=== PATIENT | female | born 1950 | race Caucasian/White ===

== ENCOUNTER 2018-10-15 05:28 | Inpatient (IN) ==
[2018-10-15] MEDS ORDERED: Chlorhexidine Gluconate 2% 1 Pack (2 Cloths) TOPICAL ONE (06:00)
[2018-10-15] MEDS ORDERED: Metoprolol Tartrate 25 MG Tablet PO ONE (06:00)
[2018-10-15] MEDS ORDERED: Sodium Chlor 0.9% Inj 500 ML IV.SIG SCH (06:00)
[2018-10-15] MEDS ORDERED: Chlorhexidine 4% Topical 120 APPLIC/120 ML Bottle TOPICAL SCH (06:15)
[2018-10-15] MEDS ORDERED: Bupivacaine/Dextrose 0.75% Inj 2 ML Ampul ONE (06:37)
[2018-10-15] MEDS ORDERED: Acetaminophen 325 MG Tablet PO PRN (06:53)
[2018-10-15] MEDS ORDERED: Zolpidem Tartrate 5 MG Tablet PO PRN (06:53)
[2018-10-15] MEDS ORDERED: Bisacodyl 10 MG Supp RECTAL PRN (06:53)
[2018-10-15] MEDS ORDERED: Post-op Orders (for Pharmacy) OTHER STA (06:53)
[2018-10-15] MEDS ORDERED: Aluminum/Magnesium/Simethacone Susp 30 ML UDC PO PRN (06:53)
--- NOTE | 2018-10-15 06:56 | P.DCO ---
- Physical Therapy Physical Therapy: Gait training Hip: Total hip, Protocol: Right, Posterior hip precautions, Progress to weight bearing Canvas Knee Splint: When in bed with 2 pillows between thighs Right Lower Extremity Weight Bearing: Weight bearing as tolerated Right Lower Extremity Range of Motion: Active ROM - Nursing Nursing: Dressing changes Dressing changes: Other Additional instructions: Do not remove Dermabond Prineo (the tape that is directly on the wound). Leave the Optifoam dressing in place for 7 days. After this, daily dressing changes will be done taking care to avoid injuring or removing the Dermabond Prineo. - Certification Need for Home Health services: I have seen patient Kacy Batista on 10/15/18. My clinical findings support the need for the requested home health care services because: Need for Home Health Services: Limited ability to care for self, High risk of falls Homebound Certification: I certify that my clinical findings support that this patient is homebound because: Homebound Certification: Post-op weakness, Unsteady gait/balance, Unsafe to leave home unassisted
[2018-10-15] MEDS ORDERED: Sodium Chlor 0.9% Inj 40 ML, Bupivacaine Liposo PF 1.3% Inj 20 ML P-ARTICULR SCH ×2 (07:00)
[2018-10-15] MEDS ORDERED: ceFAZolin 2 GM Premix Inj 2 GM/50 ML PIGGYBACK IV.SIG SCH (07:00)
[2018-10-15] MEDS ORDERED: Ketorolac Inj 30 MG/ML (IVP) Vial IV.PUSH SCH (07:00)
[2018-10-15] MEDS ORDERED: SODIUM CHLOR 0.9% IV.SIG SCH ×2 (07:00→10:00)
[2018-10-15] MEDS ORDERED: TRANEXAMIC ACID IV.SIG SCH ×2 (07:00→10:00)
[2018-10-15] MEDS ORDERED: TURMERIC 800 MG PO SCH (09:00)
--- NOTE | 2018-10-15 09:07 | P.OP ---
- Preoperative Diagnosis (1) Primary osteoarthritis of right hip - Postoperative Diagnosis (1) Primary osteoarthritis of right hip Date of procedure: 10/15/18 Procedure: Right total hip arthroplasty using Jose prosthesis. Anesthesia: local (With Exparel), spinal Surgeon: Shaun Harmon MD [employer] Shop Supervisor: MORENITA Yanez Estimated blood loss (mL): 250 Pathology: none sent Operation and Findings: Indications and Findings: This 68-year-old woman has a 2-1/2-year history of right hip pain progressively worsening and limit her and activities of daily living. She has not responded to conservative measures including analgesics, nonsteroidal anti-inflammatory agents, activity modification, exercise, ambulatory aids, physical therapy and chiropractic treatment. She complains of pain in the groin and lateral thigh as well as anterior upper thigh. She has more pain when bending and bearing weight on the right lower and pain when twisting and turning quickly. Her ambulation tolerance is markedly limited. Physical findings showed limited motion of the hip with an antalgic gait and tenderness on motion. X-rays and MRI showed significant arthritis in the hip with acetabular and femoral head subchondral cysts and irregularity in the joint surface. Operative findings: There was significant irregularity in the joint surface particularly in the anterior and superior acetabulum and superior femoral head with loss of articular cartilage and some eburnation. Implants: The acetabular component was a 48 mm external diameter Trident II cluster shell with a 36 mm inner diameter 0 degree X3 polyethylene liner. The femoral component was an Accolade II size 4 x 127 degrees. The femoral head was a Biolox Delta 36 mm outer diameter with -5 mm offset. The patient was brought to the clean air operating suite and a spinal anesthetic was administered. The patient was positioned into a lateral position with the operative hip up on a Next Generation Dance lateral positioner. The hip and lower extremity were prepped with alcohol, Hibiclens and ChloraPrep and draped in the usual manner with the hip draped free. Patient received prophylactic antibiotics preoperatively. The patient also received tranexamic acid preoperatively. An appropriate timeout procedure was carried out. An incision was made from the midportion of the greater trochanter proximally and posteriorly paralleling the fibers of the gluteus ramila. The incision was deepened through subcutaneous tissues down to the fascia joe and gluteus fascia. The gluteus fascia was then split longitudinally in line with its fibers up to the upper portion of the fascia joe. With wound towels in place, the Charnley retractor was inserted. The sciatic nerve was identified and protected throughout the procedure. Dissection was then carried down to the interval between the gluteus minimus and the piriformis. A retractor was inserted. The piriformis and obturator conjoined tendon was released from the greater trochanter and reflected off the capsule. A capsulotomy was made longitudinally along the femoral neck to the base of the femoral neck and then curved distally along the posterior aspect of the greater trochanter. The hip was internally rotated. Further release of the external rotators was carried out exposing the hip. The hip was dislocated. The femoral neck was transected at the appropriate level using the oscillating saw placement of appropriate retractors. The femoral head was removed. Preparation of the femur was initiated with a box osteotome followed by a curet to identify the medullary canal. Broaching was then initiated with the size 0 broach and went in 1 size increments up to size 4. The broach handle was removed. The femoral neck was then trimmed with a calcar planar. Attention was then directed to the acetabulum. Soft tissues were debrided from the acetabulum. Retractors were placed about the acetabulum. Reaming was then initiated with the 43 millimeter reamer and went in 1-2 mm increments up to the 47 millimeter diameter reamer. A trial reduction with the 48 millimeter trial prosthesis was carried out. When this was deemed to be appropriate, the trial prosthesis was removed. The acetabulum was irrigated and cleaned. The actual prosthesis as noted above was impacted into place and seated appropriately. Drill holes were made and sounded. Appropriate sized screws were inserted to stabilize the acetabulum further. The liner as noted above was inserted into the acetabular shell and impacted into place. Osteophytes were trimmed from the acetabulum. Local anesthetic was administered throughout the area of the acetabulum and anterior aspect of the femur. The trial neck was placed on the broach for the above-noted prosthesis. The femoral head trial was placed onto the femoral neck . A trial reduction was carried out. Adjustment was made as needed. The stability, leg length and motion were excellent. There was no pistoning. The trial prosthesis was removed. The broach was removed. The femoral component was impacted into the medullary canal of the femur after irrigation and suctioning. When this was appropriately seated a trial reduction was again carried out with the trial prosthesis. There was no pistoning. The leg length was appropriate. The stability and motion were excellent. The trial prosthesis was then removed. After cleaning and drying the trunion of the femoral component, the above-noted femoral head was impacted onto the trunnion. The hip was reduced. The stability and mobility were again checked along with leg lengths as noted above. The hip was positioned appropriately and closure commenced after the remainder of the local anesthetic was injected throughout the hip. The external rotators and capsule were repaired with #1 Vicryl interrupted transosseous sutures with a Krakw technique to reattach the external rotators and capsule to the posterior aspect of the greater trochanter. The capsule itself on the superior aspect was closed with #1 Vicryl interrupted [id number] sutures. The sciatic nerve was inspected. The fascia joe and gluteus fascia were repaired with #1 Vicryl interrupted [id number] sutures. The subcutaneous tissues were closed with 2-0 Vicryl interrupted simple sutures with buried knots. The skin was closed with a continuous subcuticular closure of 4-0 Monocryl. The wound was then approximated with Dermabond Prineo. A silver impregnated dressing was applied to the hip. A knee immobilizer was applied to the leg. The patient was transferred from the operating room to the recovery room in satisfactory condition having tolerated the procedure well. Counts are correct. Specimens: None. Estimated blood loss: 250 mL
[2018-10-15] MEDS ORDERED: fentaNYL Citrate Inj 100 MCG/2 ML Ampul ONE (09:31)
[2018-10-15] MEDS ORDERED: SODIUM CHLOR 0.9% IV.SIG ONE (10:00)
[2018-10-15] MEDS ORDERED: TRANEXAMIC ACID IV.SIG ONE (10:00)
--- NOTE | 2018-10-15 10:23 | XR ---
EXAM DATE: 10/15/2018 10:16 AM EST AGE/SEX: 68 years / Female INDICATIONS: Post op right hip surgery CLINICAL DATA: This is the patient's initial encounter. Patient reports that signs and symptoms have been present for 1 day and indicates a pain score of Nonresponsive. MEDICAL/SURGICAL HISTORY: None. None. COMPARISON: No prior exams available for comparison. FINDINGS: AP and crosstable lateral views the right hip were obtained and demonstrate the patient is status pos t right hip arthroplasty. The femoral and acetabular components are intact and in normal alignment. CONCLUSION: Expected postoperative changes status post right arthroplasty Electronically signed by: Malachi Lopez MD 10/15/2018 10:22 AM EST
[2018-10-15] MEDS: Calcium Carbonate 500 MG Tablet PO SCH (10:32)
[2018-10-15] MEDS: Senna/Docusate Sodium 8.6/50 MG Tablet PO SCH ×2 (10:33→21:37)
[2018-10-15] MEDS: Ketorolac Inj 30 MG/ML (IVP) Vial IV.PUSH SCH ×3 (10:34→21:37)
[2018-10-15] MEDS ORDERED: *Ondansetron Inj 4 MG/2 ML Vial PERIprocedural Use ONLY ONE (10:40)
[2018-10-15] MEDS ORDERED: *morphine SULFATE 10 MG/ML PERIprocedure ONLY ONE (13:06)
[2018-10-15] MEDS ORDERED: ceFAZolin 1 GM Premix Inj 1 GM/50 ML PIGGYBACK IV.SIG SCH (17:00)
--- NOTE | 2018-10-15 17:02 | P.CON ---
History of Present Illness Service: [facility] Consult date: 10/15/18 Requesting Physician: Shaun Harmon Reason for Consult: Medical management Primary Care Provider: Sri Perez MD Chief Complaint: Hip surgery History of Present Illness: 68-year-old female with past medical history significant for osteoarthritis, sleep apnea, polycythemia, and chronic UTIs admitted under orthopedic services for planned total right hip arthroplasty due to osteoarthritis. Patient is seen ambulating from the bathroom to her bed with the assistance of staff and a walker. She is examined resting in bed and appears to be in no acute distress. She reports some pain discomfort on the right hip at the moment after ambulating. Denies any nausea, vomiting, shortness of breath, cough, chest pain or dizziness. She voices no acute concerns or complaints at the moment. Review of Systems All other systems reviewed negative except as stated in [facility] - History History Provided By: Patient - Medical History Medical History: Medical History (Last Updated 10/15/18 @ 16:59 by Alisha Edge) Arthritis CPAP (continuous positive airway pressure) dependence Chronic UTI History of anesthesia reaction History of cystocele History of rectocele Polycythemia Sleep apnea Vaginal prolapse Wears glasses - Surgical History Surgical History: Surgical History (Last Reviewed 10/15/18 @ 17:15 by Alisha Edge) H/O dilation and curettage H/O hand surgery - Family History Family History: Family History (Last Updated 10/15/18 @ 17:01 by Alisha Edge) Mother Lung cancer Father Atrial fibrillation - Social History I have reviewed the patient's Social History: Yes - Tobacco History Second Hand Smoke Exposure: No Tobacco Use In Past 30 Days: No Smoking Status: Former smoker - Alcohol History How Often Do You Have a Drink Containing Alcohol: Monthly or less - Substance Use History Substance History: No History of Abuse - Travel History Recent Travel in the [place] Within the Last 8 Weeks: Yes Recent Travel Out of the Country Within the Last 8 Weeks: No - Immunization History Tetanus Immunization: <5 Years Hx Influenza Vaccine This Season: No Medications and Allergies Active Medications: Active Medications Acetaminophen (Tylenol) 650 mg PO Q6H PRN PRN Reason: Pain Less Than 3 On Scale Hydrocodone Bitart/Acetaminophen (Daisy 7.5/325) 1 tab PO Q4H PRN PRN Reason: PAIN SCALE 4 TO 6 MODERATE Hydrocodone Bitart/Acetaminophen (Daisy 7.5/325) 2 tab PO Q6H PRN PRN Reason: PAIN SCALE 7 TO 10 SEVERE Last Admin: 10/15/18 15:00 Dose: 2 tab Al Hydrox/Mg Hydrox/Simethicone (Mag-Al Plus Susp Liq) 30 ml PO Q6H PRN PRN Reason: INDIGESTION Al Hydroxide/Mg Hydroxide (Milk Of Magnesia Liq) 30 ml PO BID PRN PRN Reason: Mild Constipation Aspirin (Aspirin Chew) 81 mg PO BID [facility] Last Admin: 10/15/18 10:31 Dose: 81 mg Bisacodyl (Dulcolax Supp) 10 mg RECTAL DAILY PRN PRN Reason: SEVERE CONSITIPATION Calcium Carbonate (Oscal) 500 mg PO DAILY [facility] Last Admin: 10/15/18 10:32 Dose: 500 mg Chlorhexidine Gluconate (Hibiclens 4% Topical) 1 applicatio TOPICAL ONCE [facility] Stop: 10/19/18 06:14 Cyanocobalamin (Vitamin B12) 1,500 mcg PO DAILY [facility] Last Admin: 10/15/18 10:32 Dose: 1,500 mcg Diphenhydramine HCl (Benadryl) 25 mg PO Q6H PRN PRN Reason: ITCHING Lactated Ringer's (Lr 1000 Ml Inj) 1,000 mls @ 30 mls/hr IV.SIG .Q24H [facility] Stop: 10/16/18 05:59 Last Admin: 10/15/18 06:17 Dose: 30 mls/hr Sodium Chloride (Ns Inj) 500 mls @ 30 mls/hr IV.SIG .Q10H [facility] Last Admin: 10/15/18 06:50 Dose: Not Given Cefazolin Sodium/Dextrose (Ancef 2 Gm Premix Inj) 2 gm in 50 mls @ 100 mls/hr IV.SIG APPLICATIONS PROGRAMMER ANALYST [facility] Stop: 10/19/18 06:59 Last Infusion: 10/15/18 07:38 Dose: Infused Cefazolin Sodium 1,000 mg/ (Sodium Chloride) 100 mls @ 200 mls/hr IV.SIG Q6H [facility] Stop: 10/16/18 03:29 Lactated Ringer's (Lr 1000 Ml Inj) 1,000 mls @ 80 mls/hr IV.CONT .[id number] [facility] Last Admin: 10/15/18 09:20 Dose: 80 mls/hr Ketorolac Tromethamine (Toradol Inj) 15 mg IV.PUSH Q6H [facility] Stop: 10/17/18 04:01 Last Admin: 10/15/18 10:34 Dose: 15 mg Lactulose (Lactulose Liq) 30 ml PO DAILY PRN PRN Reason: SEVERE CONSITIPATION Miscellaneous Information (Misc Nursing Information) 0 each OTHER UNSCH PRN PRN Reason: SEE LABEL COMMENTS Stop: 10/16/18 09:21 Morphine Sulfate (Morphine Inj) 2 mg IV.PUSH Q3H PRN PRN Reason: BREAKTHROUGH PAIN Ondansetron HCl (Zofran Odt) 4 mg PO Q6H PRN PRN Reason: NAUSEA OR VOMITING Senna/Docusate Sodium (Yuliya-Colace) 1 tab PO BID [facility] Last Admin: 10/15/18 10:33 Dose: Not Given Sennosides (Senokot) 17.2 mg PO BID PRN PRN Reason: Moderate Constipation Sodium Chloride (Ns Flush) 2 ml IV.FLUSH BID [facility] Last Admin: 10/15/18 10:32 Dose: 2 ml Sodium Chloride (Ns Flush) 2 ml IV.FLUSH PRN PRN PRN Reason: FLUSH AFTER USING IV ACCESS Vitamin D (Vitamin D3) 2,000 unit PO DAILY [facility] Last Admin: 10/15/18 10:32 Dose: 2,000 unit Zolpidem Tartrate (Ambien) 5 mg PO HS PRN PRN Reason: INSOMNIA Allergies Allergy/AdvReac Type Severity Reaction Status Date / Time nickel Allergy Rash Verified 10/15/18 16:17 Home Medications Medication Instructions Recorded Confirmed Type aspirin [Aspir-Low] 81 mg PO DAILY 10/08/18 10/15/18 History calcium citrate 1,000 mg PO DAILY 10/08/18 10/15/18 History cholecalciferol (vitamin D3) 2,000 unit PO DAILY 10/08/18 10/15/18 History [Vitamin D3] cyanocobalamin (vitamin B-12) 1,500 mcg PO DAILY 10/08/18 10/15/18 History [Vitamin B-12] turmeric 800 mg PO DAILY 10/08/18 10/15/18 History Physical Exam Vital signs: Vital Signs 10/15/18 06:32 10/15/18 09:19 10/15/18 09:30 Temperature 98.4 F 96.1 F L Pulse Rate 78 62 58 L Respiratory Rate 16 18 12 Blood Pressure 127/84 108/67 96/62 L Pulse Oximetry 97 99 97 10/15/18 09:45 10/15/18 10:00 10/15/18 10:15 Temperature Pulse Rate 60 56 L 58 L Respiratory Rate 18 17 14 Blood Pressure 108/62 104/64 108/69 Pulse Oximetry 100 100 97 10/15/18 10:30 10/15/18 10:45 10/15/18 11:00 Temperature Pulse Rate 55 L 56 L 58 L Respiratory Rate 13 13 12 Blood Pressure 108/71 114/67 110/72 Pulse Oximetry 99 97 98 10/15/18 12:00 10/15/18 13:00 10/15/18 14:00 Temperature 96.9 F L Pulse Rate 77 99 H 79 Respiratory Rate 20 20 17 Blood Pressure 108/71 152/85 H 110/73 Pulse Oximetry 97 94 L 96 10/15/18 15:00 Temperature 98.1 F Pulse Rate 62 Respiratory Rate 13 Blood Pressure 113/66 Pulse Oximetry 96 Intake & Output 10/14/18 10/15/18 10/15/18 18:59 06:59 18:59 Intake Total 1457.65 / 1457.65 Output Total 250 / 250 Balance 1207.65 / 1207.65 Weight 76.5 kg Intake: IV 157.65 / 157.65 Cyklokapron Inj 765 MG In NS 107.65 / 107.65 Inj 100 ML @ 200 mls/hr IV.SIG ONCE [facility] Rx#:[id number] Ancef 2 GM Premix Inj 2 gm In 50 / 50 50 ml @ 100 mls/hr IV.SIG APPLICATIONS PROGRAMMER ANALYST [facility] Rx#:[id number] Anesthesia Amount 1300 / 1300 Output: Estimated Blood Loss 250 / 250 Other: Weight On Admission 76.5 kg Narrative: GENERAL: Well-developed, well-nourished female in no acute distress. SKIN: Warm and dry. HEAD: Atraumatic. Normocephalic. EYES: Pupils equal and round. No scleral icterus. No injection or drainage. ENT: No nasal bleeding or discharge. Mucous membranes pink and moist. NECK: Trachea midline. No JVD. CARDIOVASCULAR: Regular rate and rhythm. RESPIRATORY: No accessory muscle use. Clear to auscultation. Breath sounds equal bilaterally. GASTROINTESTINAL: Abdomen soft, non-tender, nondistended. + Bowel sounds MUSCULOSKELETAL: Extremities without clubbing, cyanosis, or edema. No obvious deformities. Right knee in immobilizer, right hip dressing dry and intact with trace edema noted. NEUROLOGICAL: Awake, alert, oriented x3. No obvious cranial nerve deficits. Motor grossly within normal limits. 5/5 muscle strength bilateral upper extremities, left lower extremity, RLE limited due to surgery. Normal speech. PSYCHIATRIC: Appropriate mood and affect; insight and judgment normal. Results - Labs Labs: Laboratory Results - last 24 hr 10/15/18 06:17 Blood Type O Positive Blood Type Recheck Required Antibody Screen Negative - Imaging Impressions Hip X-Ray 10/15/18 06:52 CONCLUSION: Expected postoperative changes status post right arthroplasty Assessment and Plan - Plan 68-year-old female with past medical history significant for osteoarthritis, sleep apnea, polycythemia, and chronic UTIs admitted under orthopedic services for planned total right hip arthroplasty due to osteoarthritis. Osteoarthritis of right hip - s/p total right hip arthroplasty by Dr. Harmon -Cautions and dressing per Ortho services -Pain control with p.o. Daisy, IV morphine for breakthrough pain, bowel regimen -PT following Polycythemia, chronic -Only needing phlebotomy one time, follows with hematology as outpatient. - H&H tomorrow in the a.m. Sleep apnea, chronic -CPAP at HS DVT prophylaxis- ASA BID per ortho. Thank you Dr. Harmon for this consultation, will continue to follow along. Discussed Condition With: Patient and nurse. Discharge Planning: Likely DC tomorrow by ortho.
[2018-10-15] MEDS: Morphine Inj 4 MG/ML Vial IV.PUSH PRN (17:40)
[2018-10-15] MEDS: ceFAZolin 1 GM Premix Inj 1 GM/50 ML PIGGYBACK IV.SIG SCH ×2 (17:43→21:36)
[2018-10-16] MEDS: Morphine Inj 4 MG/ML Vial IV.PUSH PRN (00:53)
[2018-10-16] MEDS: Ketorolac Inj 30 MG/ML (IVP) Vial IV.PUSH SCH ×2 (04:02→10:15)
[2018-10-16] MEDS: ceFAZolin 1 GM Premix Inj 1 GM/50 ML PIGGYBACK IV.SIG SCH (04:02)
[2018-10-16 05:34] LABS: Hemoglobin 11.6 gm/dL (11.6-15.3)
--- NOTE | 2018-10-16 05:56 | P.PNOP ---
Subjective Interval history: Postop day #1 She is doing well. She has minimal complaints related to her hip. She has been up to the bathroom without much difficulty. Physical therapy reports that the ambulation distance was 100 feet. Physical Exam Vital signs: Vital Signs 10/15/18 06:32 10/15/18 09:19 10/15/18 09:30 Temperature 98.4 F 96.1 F L Pulse Rate 78 62 58 L Respiratory Rate 16 18 12 Blood Pressure 127/84 108/67 96/62 L Pulse Oximetry 97 99 97 10/15/18 09:45 10/15/18 10:00 10/15/18 10:15 Temperature Pulse Rate 60 56 L 58 L Respiratory Rate 18 17 14 Blood Pressure 108/62 104/64 108/69 Pulse Oximetry 100 100 97 10/15/18 10:30 10/15/18 10:45 10/15/18 11:00 Temperature Pulse Rate 55 L 56 L 58 L Respiratory Rate 13 13 12 Blood Pressure 108/71 114/67 110/72 Pulse Oximetry 99 97 98 10/15/18 12:00 10/15/18 13:00 10/15/18 14:00 Temperature 96.9 F L Pulse Rate 77 99 H 79 Respiratory Rate 20 20 17 Blood Pressure 108/71 152/85 H 110/73 Pulse Oximetry 97 94 L 96 10/15/18 15:00 10/15/18 16:00 10/15/18 20:00 Temperature 98.1 F 97.3 F L 97.2 F L Pulse Rate 62 72 63 Respiratory Rate 13 17 16 Blood Pressure 113/66 117/67 108/69 Pulse Oximetry 96 95 94 L 10/16/18 00:00 Temperature 97.7 F Pulse Rate 56 L Respiratory Rate 16 Blood Pressure 97/61 L Pulse Oximetry 94 L Intake & Output 10/15/18 10/15/18 10/16/18 06:59 18:59 06:59 Intake Total 2507.65 / 2507.65 1050 / 1050 Output Total 250 / 250 Balance 2257.65 / 2257.65 1050 / 1050 Weight 76.5 kg Intake: IV 1207.65 / 1207.65 1050 / 1050 LR 1000 mL Inj 1,000 ML @ 80 1000 / 1000 mls/hr IV.CONT .[id number] [facility] Rx# :[id number] LR 1000 mL Inj 1,000 ML @ 30 1000 / 1000 mls/hr IV.SIG .Q24H [facility] Rx#: [id number] Cyklokapron Inj 765 MG In NS 107.65 / 107.65 Inj 100 ML @ 200 mls/hr IV.SIG ONCE [facility] Rx#:[id number] Ancef 1 GM Premix Inj 1 gm In 50 / 50 50 / 50 50 ml @ 100 mls/hr IV.SIG Q6H [facility] Rx#:[id number] Ancef 2 GM Premix Inj 2 gm In 50 / 50 50 ml @ 100 mls/hr IV.SIG RESIDENT SURGEON [facility] Rx#:[id number] Anesthesia Amount 1300 / 1300 Output: Estimated Blood Loss 250 / 250 Other: Weight On Admission 76.5 kg Narrative: She is resting comfortably, supine in bed. The dressing is dry and intact. Her neurovascular status is intact. Results - Labs CBC & Chem 7: 10/16/18 04:07 Laboratory Results - last 24 hr 10/15/18 10/16/18 06:17 04:07 Hgb 11.6 Hct 35.0 Blood Type O Positive Blood Type Recheck Required Antibody Screen Negative - Imaging Impressions Hip X-Ray 10/15/18 06:52 CONCLUSION: Expected postoperative changes status post right arthroplasty - Procedures Right total hip arthroplasty using Jose prosthesis on 10/15/2018. Assessment and Plan - Ortho Post Op Day # 1 - Problem List (1) Status post total replacement of right hip Code(s): Z96.641 - Presence of right artificial hip joint Status: Acute Onset Date: ~10/15/18 - Assessment and Plan Condition: Good. Orthopedically stable. DVT prophylaxis: TEDs, aspirin, sequentials. Discharge plans: Home with home health care. An appointment was scheduled through the office. Prescriptions: [place] 7.5/325; Patient is having significant pain caused by a total hip arthroplasty which will last more than 3 days. Trial of Tylenol has not helped. I believe that it is medically necessary to treat patients pain because it is affecting patients ability to participate in postoperative rehabilitation and perform activities of daily living in a comfortable and efficient manner. I have checked the [facility] database prior to completing the prescription.
--- NOTE | 2018-10-16 06:18 | P.DS ---
Date of admission: 10/15/18 05:28 Primary care physician: Sri Perez MD Attending physician on discharge: Shaun Harmon Anticipated date of discharge: 10/16/18 Brief History from admission: This 68-year-old woman has had long-standing right hip pain nonresponsive to conservative measures over the past 2-1/2 years. This is worsened progressively. She has had groin pain, difficulty with stairs, difficulty standing from a seated position and activities of daily living. Physical findings showed limited range of motion in the right hip with an antalgic gait. X-rays and MRI showed significant changes particularly in the superior aspect of the femoral head and acetabulum consistent with osteoarthritis. DS: Diagnosis - Discharge Diagnosis (1) Primary osteoarthritis of right hip Status: Chronic Diagnosis: Principal (2) Status post total replacement of right hip Status: Acute Diagnosis: Principal (3) Polycythemia Status: Acute Diagnosis: Secondary DS: Medications - Discharge Medications Prescriptions: hydrocodone-acetaminophen 1 tab PO Q4H PRN 7 Days #42 tab PRN Reason: Pain, Severe DS: Summary Hospital Course: The patient was admitted as noted above. The above noted operative procedure was carried out that day. Preoperatively prophylactic antibiotics were administered Ancef according to protocol. These were continued postoperatively. The patient also received tranexamic acid to help with hemostasis according to protocol. In the postanesthesia care unit mechanical methods of DVT prophylaxis in the form of DANY stockings and sequentials were initiated. Physical therapy was initiated on the day of surgery. On postoperative day #1 physical therapy continued. DVT prophylaxis with aspirin 81 mg was initiated at this time. The patient continued physical therapy throughout the hospitalization. The distance walked and range of motion improved throughout the hospitalization. The patient was discharged on postoperative day 1 with the disposition being to home with home health care. An appointment for follow-up was made prior to admission. - Time Spent with Patient Total time spent providing and/or coordinating discharge services: Less than 30 minutes - Quality: VTE Deep Vein Thrombosis/Pulmonary Embolism Present on Admission: No Exam Vital signs: Vital Signs 10/15/18 06:32 10/15/18 09:19 10/15/18 09:30 Temperature 98.4 F 96.1 F L Pulse Rate 78 62 58 L Respiratory Rate 16 18 12 Blood Pressure 127/84 108/67 96/62 L Pulse Oximetry 97 99 97 10/15/18 09:45 10/15/18 10:00 10/15/18 10:15 Temperature Pulse Rate 60 56 L 58 L Respiratory Rate 18 17 14 Blood Pressure 108/62 104/64 108/69 Pulse Oximetry 100 100 97 10/15/18 10:30 10/15/18 10:45 10/15/18 11:00 Temperature Pulse Rate 55 L 56 L 58 L Respiratory Rate 13 13 12 Blood Pressure 108/71 114/67 110/72 Pulse Oximetry 99 97 98 10/15/18 12:00 10/15/18 13:00 10/15/18 14:00 Temperature 96.9 F L Pulse Rate 77 99 H 79 Respiratory Rate 20 20 17 Blood Pressure 108/71 152/85 H 110/73 Pulse Oximetry 97 94 L 96 10/15/18 15:00 10/15/18 16:00 10/15/18 20:00 Temperature 98.1 F 97.3 F L 97.2 F L Pulse Rate 62 72 63 Respiratory Rate 13 17 16 Blood Pressure 113/66 117/67 108/69 Pulse Oximetry 96 95 94 L 10/16/18 00:00 Temperature 97.7 F Pulse Rate 56 L Respiratory Rate 16 Blood Pressure 97/61 L Pulse Oximetry 94 L Intake & Output 10/15/18 10/15/18 10/16/18 06:59 18:59 06:59 Intake Total 2507.65 / 2507.65 1100 / 1100 Output Total 250 / 250 Balance 2257.65 / 2257.65 1100 / 1100 Weight 76.5 kg Intake: IV 1207.65 / 1207.65 1100 / 1100 LR 1000 mL Inj 1,000 ML @ 80 1000 / 1000 mls/hr IV.CONT .[id number] [facility] Rx# :[id number] LR 1000 mL Inj 1,000 ML @ 30 1000 / 1000 mls/hr IV.SIG .Q24H [facility] Rx#: [id number] Cyklokapron Inj 765 MG In NS 107.65 / 107.65 Inj 100 ML @ 200 mls/hr IV.SIG ONCE [facility] Rx#:[id number] Ancef 1 GM Premix Inj 1 gm In 50 / 50 100 / 100 50 ml @ 100 mls/hr IV.SIG Q6H K[facility] Rx#:[id number] Ancef 2 GM Premix Inj 2 gm In 50 / 50 50 ml @ 100 mls/hr IV.SIG [employer] [facility] Rx#:[id number] Anesthesia Amount 1300 / 1300 Output: Estimated Blood Loss 250 / 250 Other: Weight On Admission 76.5 kg Narrative: She is resting comfortably, supine in bed. The dressing is dry and intact. Her neurovascular status is intact. Results Procedures completed during hospitalization: Right total hip arthroplasty using [place] [facility] prosthesis on 10/15/2018. Labs on day of discharge: Labs from last 24 hours 10/16/18 10/15/18 04:07 06:17 Hgb 11.6 Hct 35.0 Blood Type O Positive Blood Type Recheck Required Antibody Screen Negative - Impressions ITS Impressions Hip X-Ray 10/15/18 06:52 CONCLUSION: Expected postoperative changes status post right arthroplasty Discharge Plan - Discharge Disposition Patient Disposition: /Home Health Service - Discharge Condition Condition: Stable - Discharge Order Discharge Orders: Discharge Order (Routine); Ordered 10/16/18 Ordered By: Shaun Harmon - Discharge Details Anticipated Discharge Date: 10/16/18 - Physicians Team Primary Care Provider: Sri Perez Attending Provider: Shaun Harmon Other Providers: Attila Ballesteros MD - Rxs /Orders / Referrals /Forms Prescriptions: New aspirin 81 mg Tablet,Chewable 81 mg PO BID RF: 0 hydrocodone-acetaminophen 7.5-325 mg Tablet 1 tab PO Q4H PRN (Reason: Pain, Severe) 7 Days Qty: 42 RF: 0 Continue calcium citrate 250 mg calcium Tablet 1,000 mg PO DAILY cholecalciferol (vitamin D3) [Vitamin D3] 2,000 unit Tablet 2,000 unit PO DAILY cyanocobalamin (vitamin B-12) [Vitamin B-12] 1,000 mcg Tablet Extended Release 1,500 mcg PO DAILY turmeric 400 mg Capsule 800 mg PO DAILY Discontinued aspirin [Aspir-Low] 81 mg Tablet,Delayed Release (Dr/Ec) 81 mg PO DAILY Referrals: Shaun Harmon MD [Physician] - See Instructions Sri Perez MD [Primary Care Provider] - See Instructions - Discharge Instructions Patient Printed Instructions: Total Hip Replacement (DC)
[2018-10-16] MEDS: Calcium Carbonate 500 MG Tablet PO SCH (08:41)
[2018-10-16] MEDS: Senna/Docusate Sodium 8.6/50 MG Tablet PO SCH (08:42)
== END 2018-10-16 17:43 | disposition home health service (06) ==
LOC: HSDI 05:28 → N06 15:54
PROVIDERS: ADMIT Orthopaedic Surgery; ATTEND Orthopaedic Surgery